=== PATIENT | male | born 1955 | race Caucasian/White ===

== ENCOUNTER 2021-09-01 22:15 | Inpatient (IN) | payer OTHER ==
[2021-09-01 23:01] LABS: Bilirubin Neg (Negative); Blood, Urine 150 (Negative); Clarity Clear (Clear); Glucose, Urine (Dipstick) Normal (Negative); Ketone, Urine 50 mg/dL (Negative); Leukocyte 100 (Negative); Nitrite Negative (Negative); Protein, Urine (Dipstick) 30 mg/dl (Neg-Trace); Urobilinogen Normal mg/dL (Less than 2); pH, Urine 6.5 (5.0-9.0)
[2021-09-01 23:10] LABS: Bacteria/HPF 2+ HPF (None Seen); RBC/HPF 0-3 HPF (0-3); Squamous Epithelial None Seen HPF (0-3); WBC/HPF 0-3 HPF (0-3)
[2021-09-01 23:11] LABS: ALT (SGPT) 43 U/L (8-55); AST (SGOT) 60 U/L (5-34); Albumin 3.8 g/dL (3.4-4.8); Alkaline Phosphatase 192 U/L (40-110); Anion Gap 18 mmol/L (10-20); BUN (Urea Nitrogen) 21 mg/dL (8.4-25.7); Bilirubin, Total 1.3 mg/dL (0.2-1.2); CK (CPK) 990 U/L (30-200); Calc. Creatinine Clearance 0 mL/min (70-130); Calcium 7.5 mg/dL (7.8-10.44); Carbon Dioxide 22 mmol/L (23-31); Globulin 2.5 g/dL (2.4-3.5); Glucose 89 mg/dL (80-115); Lipase 29 U/L (8-78); Magnesium 1.5 mg/dL (1.6-2.6); Protein, Total 6.3 g/dL (5.8-8.1)
[2021-09-01 23:40] LABS: SARS-CoV-2 NAA Rapid Test Not Detected (NotDetected)
[2021-09-01 23:53] LABS: CKMB 23.3 ng/mL (0-6.6)
[2021-09-01 23:54] LABS: Chloride 68 mmol/L (98-107); Potassium 2.1 mmol/L (3.5-5.1); Sodium 103 mmol/L (136-145)
[2021-09-02 00:44] LABS: ALT (SGPT) 36 U/L (8-55); AST (SGOT) 52 U/L (5-34); Albumin 3.5 g/dL (3.4-4.8); Alkaline Phosphatase 179 U/L (40-110); Anion Gap 20 mmol/L (10-20); BUN (Urea Nitrogen) 20 mg/dL (8.4-25.7); Bilirubin, Total 1.2 mg/dL (0.2-1.2); Calc. Creatinine Clearance 0 mL/min (70-130); Calcium 6.9 mg/dL (7.8-10.44); Carbon Dioxide 19 mmol/L (23-31); Globulin 2.4 g/dL (2.4-3.5); Glucose 78 mg/dL (80-115); Protein, Total 5.9 g/dL (5.8-8.1)
[2021-09-02 00:49] LABS: Chloride 71 mmol/L (98-107); Potassium 2.1 mmol/L (3.5-5.1); Sodium 108 mmol/L (136-145)
[2021-09-02 00:50] LABS: #Monocytes 0.7 10x3/uL (0.0-1.1); #Neutrophils 8.5 10x3/uL (1.5-8.4); %Basophils 0.2 % (0.0-2.0); %Eosinophils 0.1 % (0.0-6.0); %Lymphocytes 7.5 % (18.0-47.0); %Monocytes 6.6 % (0.0-10.0); %Neutrophils 84.6 % (40.0-75.0); Hemoglobin 12.8 g/dL (13.5-17.5); Mean Corpuscular HGB CONC 39.8 g/dL (32.0-36.0); Mean Corpuscular Hemoglobin 31.1 pg (27.0-33.0); Mean Corpuscular Volume 78.2 fl (81.2-95.1); Mean Platelet Volume 8.7 fl (7.4-10.4); Platelet Count 213 10x3/uL (150-450); RBC Distribution Width 12.2 % (11.5-14.5); Red Blood Cell (RBC) Count 4.12 10x6/uL (4.32-5.72); White Blood Cell (WBC) Count 10.1 10x3/uL (3.5-10.5)
[2021-09-02] MEDS ORDERED: Magnesium 2 GM/50 ML BAG (IN WATER) ONE (00:50)
[2021-09-02] MEDS ORDERED: NS 0.9% w/ 40 MEQ KCL 1,000 ML IV ONE (00:59)
[2021-09-02] MEDS ORDERED: Potassium Chloride 20 MEQ TAB PO SCH ×3 (02:15→18:00)
[2021-09-02] MEDS: Potassium Chloride 20 MEQ in Premix Bag 1 BAG IVPB SCH ×4 (02:58→20:24)
[2021-09-02] MEDS ORDERED: CALCIUM GLUC 1GM/NS 50ML 1 GM in Premix Bag 1 BAG IVPB SCH (04:00)
[2021-09-02 06:41] LABS: PTT 28.3 sec (22.0-33.0); Prothrombin Time 11.1 sec (9.5-12.1)
[2021-09-02 06:51] LABS: Anion Gap 20 mmol/L (10-20); BUN (Urea Nitrogen) 19 mg/dL (8.4-25.7); Calc. Creatinine Clearance 88 mL/min (70-130); Calcium 7.6 mg/dL (7.8-10.44); Carbon Dioxide 20 mmol/L (23-31); Glucose 78 mg/dL (80-115); Magnesium 1.8 mg/dL (1.6-2.6)
[2021-09-02 06:54] LABS: Chloride 73 mmol/L (98-107); Potassium 2.5 mmol/L (3.5-5.1); Sodium 110 mmol/L (136-145)
[2021-09-02 06:55] LABS: Troponin I 0.039 ng/mL (< 0.028)
[2021-09-02] MEDS ORDERED: Dextrose 5% in Water 1,000 ML IV SCH (07:45)
[2021-09-02] MEDS: Enoxaparin Sodium 40 MG/0.4 ML SYRINGE SC SCH (08:09)
[2021-09-02] MEDS: Magnesium Oxide 400 MG TAB PO SCH (08:10)
[2021-09-02 12:01] LABS: Anion Gap 16 mmol/L (10-20); BUN (Urea Nitrogen) 19 mg/dL (8.4-25.7); Calc. Creatinine Clearance 88 mL/min (70-130); Calcium 7.9 mg/dL (7.8-10.44); Carbon Dioxide 19 mmol/L (23-31); Chloride 76 mmol/L (98-107); Glucose 92 mg/dL (80-115)
[2021-09-02 12:16] LABS: Potassium 2.6 mmol/L (3.5-5.1); Sodium 108 mmol/L (136-145)
[2021-09-02 17:30] LABS: Anion Gap 12 mmol/L (10-20); BUN (Urea Nitrogen) 20 mg/dL (8.4-25.7); Calc. Creatinine Clearance 81 mL/min (70-130); Calcium 7.7 mg/dL (7.8-10.44); Carbon Dioxide 23 mmol/L (23-31); Chloride 75 mmol/L (98-107); Glucose 106 mg/dL (80-115)
[2021-09-02 17:41] LABS: Potassium 2.5 mmol/L (3.5-5.1); Sodium 108 mmol/L (136-145)
[2021-09-02 19:33] LABS: Anion Gap 15 mmol/L (10-20); BUN (Urea Nitrogen) 19 mg/dL (8.4-25.7); Calc. Creatinine Clearance 81 mL/min (70-130); Calcium 7.4 mg/dL (7.8-10.44); Carbon Dioxide 22 mmol/L (23-31); Chloride 76 mmol/L (98-107); Glucose 110 mg/dL (80-115)
[2021-09-02 19:36] LABS: Potassium 2.6 mmol/L (3.5-5.1); Sodium 110 mmol/L (136-145)
[2021-09-02] MEDS: Potassium Chloride 20 MEQ TAB PO SCH (20:25)
[2021-09-02 23:38] LABS: Anion Gap 13 mmol/L (10-20); BUN (Urea Nitrogen) 20 mg/dL (8.4-25.7); Calc. Creatinine Clearance 78 mL/min (70-130); Calcium 7.9 mg/dL (7.8-10.44); Carbon Dioxide 22 mmol/L (23-31); Chloride 79 mmol/L (98-107); Glucose 109 mg/dL (80-115); Potassium 3.1 mmol/L (3.5-5.1)
[2021-09-02 23:39] LABS: Sodium 111 mmol/L (136-145)
[2021-09-03] MEDS: Potassium Chloride 20 MEQ TAB PO SCH (01:29)
[2021-09-03 04:08] LABS: Anion Gap 14 mmol/L (10-20); BUN (Urea Nitrogen) 18 mg/dL (8.4-25.7); CK (CPK) 786 U/L (30-200); Calc. Creatinine Clearance 83 mL/min (70-130); Calcium 7.8 mg/dL (7.8-10.44); Carbon Dioxide 21 mmol/L (23-31); Chloride 82 mmol/L (98-107); Glucose 99 mg/dL (80-115); Magnesium 1.8 mg/dL (1.6-2.6); Potassium 3.3 mmol/L (3.5-5.1)
[2021-09-03 04:12] LABS: Sodium 114 mmol/L (136-145)
[2021-09-03 04:25] LABS: #Monocytes 0.7 10x3/uL (0.0-1.1); #Neutrophils 5.3 10x3/uL (1.5-8.4); %Basophils 0.1 % (0.0-2.0); %Eosinophils 0.6 % (0.0-6.0); %Lymphocytes 12.7 % (18.0-47.0); %Monocytes 10.3 % (0.0-10.0); %Neutrophils 75.7 % (40.0-75.0); Hemoglobin 12.6 g/dL (13.5-17.5); Mean Corpuscular HGB CONC 38.7 g/dL (32.0-36.0); Mean Corpuscular Hemoglobin 31.2 pg (27.0-33.0); Mean Corpuscular Volume 80.7 fl (81.2-95.1); Mean Platelet Volume 8.9 fl (7.4-10.4); Platelet Count 173 10x3/uL (150-450); RBC Distribution Width 12.2 % (11.5-14.5); Red Blood Cell (RBC) Count 4.04 10x6/uL (4.32-5.72)
[2021-09-03] MEDS ORDERED: Potassium Chloride 20 MEQ TAB PO SCH ×3 (07:30→20:15)
[2021-09-03] MEDS: Magnesium Oxide 400 MG TAB PO SCH (08:09)
[2021-09-03] MEDS: Enoxaparin Sodium 40 MG/0.4 ML SYRINGE SC SCH (08:09)
[2021-09-03 11:52] LABS: Anion Gap 14 mmol/L (10-20); BUN (Urea Nitrogen) 17 mg/dL (8.4-25.7); Calc. Creatinine Clearance 84 mL/min (70-130); Calcium 7.9 mg/dL (7.8-10.44); Carbon Dioxide 20 mmol/L (23-31); Chloride 84 mmol/L (98-107); Glucose 101 mg/dL (80-115); Potassium 3.4 mmol/L (3.5-5.1)
[2021-09-03 12:03] LABS: Sodium 115 mmol/L (136-145)
[2021-09-03] MEDS: cefTRIAXone\\ROCEPHIN 1 GM in Sodium Chloride 0.9% 100 ML IVPB SCH (16:45)
[2021-09-03 19:42] LABS: Anion Gap 11 mmol/L (10-20); BUN (Urea Nitrogen) 18 mg/dL (8.4-25.7); Calc. Creatinine Clearance 78 mL/min (70-130); Calcium 7.8 mg/dL (7.8-10.44); Carbon Dioxide 23 mmol/L (23-31); Chloride 86 mmol/L (98-107); Glucose 133 mg/dL (80-115); Potassium 3.2 mmol/L (3.5-5.1)
[2021-09-03 19:46] LABS: Sodium 117 mmol/L (136-145)
[2021-09-03] MEDS ORDERED: Baclofen 10 MG TAB PO SCH (20:30)
[2021-09-03] MEDS: Acetaminophen 325 MG TAB PO PRN (23:11)
[2021-09-04 05:00] LABS: Anion Gap 14 mmol/L (10-20); BUN (Urea Nitrogen) 17 mg/dL (8.4-25.7); Calc. Creatinine Clearance 81 mL/min (70-130); Calcium 7.9 mg/dL (7.8-10.44); Carbon Dioxide 20 mmol/L (23-31); Chloride 91 mmol/L (98-107); Glucose 102 mg/dL (80-115); Potassium 3.9 mmol/L (3.5-5.1); Sodium 121 mmol/L (136-145)
[2021-09-04] MEDS: Enoxaparin Sodium 40 MG/0.4 ML SYRINGE SC SCH (09:20)
[2021-09-04] MEDS: Magnesium Oxide 400 MG TAB PO SCH (09:20)
[2021-09-04 11:23] VITALS: BMI 33.7
[2021-09-04] MEDS: cefTRIAXone\\ROCEPHIN 1 GM in Sodium Chloride 0.9% 100 ML IVPB SCH (16:09)
[2021-09-04] MEDS: Gabapentin 300 MG CAP PO SCH ×2 (16:09→20:38)
[2021-09-04] MEDS ORDERED: Baclofen 10 MG TAB PO SCH (21:00)
[2021-09-05 04:26] LABS: #Eosinphils 0.1 10x3/uL (0.0-0.5); #Monocytes 0.7 10x3/uL (0.0-1.1); #Neutrophils 4.6 10x3/uL (1.5-8.4); %Basophils 0.6 % (0.0-2.0); %Eosinophils 1.5 % (0.0-6.0); %Lymphocytes 18.7 % (18.0-47.0); %Monocytes 9.9 % (0.0-10.0); %Neutrophils 68.1 % (40.0-75.0); Hemoglobin 12.5 g/dL (13.5-17.5); Mean Corpuscular HGB CONC 37.3 g/dL (32.0-36.0); Mean Corpuscular Hemoglobin 31.1 pg (27.0-33.0); Mean Corpuscular Volume 83.3 fl (81.2-95.1); Platelet Count 176 10x3/uL (150-450); RBC Distribution Width 12.8 % (11.5-14.5); Red Blood Cell (RBC) Count 4.02 10x6/uL (4.32-5.72); White Blood Cell (WBC) Count 6.8 10x3/uL (3.5-10.5)
[2021-09-05 04:44] LABS: Anion Gap 14 mmol/L (10-20); BUN (Urea Nitrogen) 18 mg/dL (8.4-25.7); Calc. Creatinine Clearance 83 mL/min (70-130); Calcium 8.3 mg/dL (7.8-10.44); Carbon Dioxide 21 mmol/L (23-31); Chloride 95 mmol/L (98-107); Glucose 95 mg/dL (80-115); Potassium 3.4 mmol/L (3.5-5.1); Sodium 127 mmol/L (136-145)
[2021-09-05] MEDS: Gabapentin 300 MG CAP PO SCH ×3 (09:24→21:06)
[2021-09-05] MEDS: Enoxaparin Sodium 40 MG/0.4 ML SYRINGE SC SCH (09:25)
[2021-09-05] MEDS: Acetaminophen 325 MG TAB PO PRN (09:25)
[2021-09-05] MEDS: Magnesium Oxide 400 MG TAB PO SCH (09:25)
[2021-09-05] MEDS ORDERED: Nystatin Powder 15 GM BOT TOP PRN (12:01)
[2021-09-05] MEDS: Baclofen 10 MG TAB PO SCH ×2 (15:43→21:05)
[2021-09-05] MEDS: cefTRIAXone\\ROCEPHIN 1 GM in Sodium Chloride 0.9% 100 ML IVPB SCH (15:43)
[2021-09-05] MEDS ORDERED: Potassium Chloride 20 MEQ TAB PO SCH (16:00)
[2021-09-05] MEDS: Mometasone 100 MCG/PUFF (1 INHALER) INH SCH (19:40)
[2021-09-05] MEDS ORDERED: Atorvastatin Calcium 20 MG TAB PO SCH (21:00)
[2021-09-05] MEDS ORDERED: carBAMazepine 200 MG TAB PO SCH (21:00)
[2021-09-06 05:17] LABS: Anion Gap 16 mmol/L (10-20); BUN (Urea Nitrogen) 23 mg/dL (8.4-25.7); Calc. Creatinine Clearance 68 mL/min (70-130); Calcium 8.2 mg/dL (7.8-10.44); Carbon Dioxide 20 mmol/L (23-31); Chloride 100 mmol/L (98-107); Glucose 100 mg/dL (80-115); Magnesium 1.6 mg/dL (1.6-2.6); Potassium 3.9 mmol/L (3.5-5.1); Sodium 132 mmol/L (136-145)
[2021-09-06] MEDS: Mometasone 100 MCG/PUFF (1 INHALER) INH SCH (06:43)
[2021-09-06] MEDS: Magnesium Oxide 400 MG TAB PO SCH (09:59)
[2021-09-06] MEDS: Gabapentin 300 MG CAP PO SCH ×2 (09:59→18:38)
[2021-09-06] MEDS: Baclofen 10 MG TAB PO SCH ×2 (09:59→18:39)
[2021-09-06] MEDS: Enoxaparin Sodium 40 MG/0.4 ML SYRINGE SC SCH (09:59)
[2021-09-06] MEDS ORDERED: Magnesium 2 GM/50 ML(in water) 2 GM in Premix Bag 1 BAG IVPB SCH (17:00)
[2021-09-06 18:50] VITALS: BP 118/67; TEMP 98.7
== END 2021-09-06 18:57 | DRG 641 ==
LOC: CSHERS 22:15 → CSHIMCU 09-02 02:41 → CSHTELE 09-04 10:56
PROVIDERS: ADMIT Family Medicine; ATTEND Family Medicine
DX: E87.1 Hypo-osmolality and hyponatremia (principal); N39.0 Urinary tract infection, site not specified; T83.511A Infection and inflammatory reaction due to indwelling urethral catheter, initial encounter; G82.20 Paraplegia, unspecified; N17.9 Acute kidney failure, unspecified; I95.0 Idiopathic hypotension; F12.90 Cannabis use, unspecified, uncomplicated; E87.6 Hypokalemia; E83.42 Hypomagnesemia; N18.31 Chronic kidney disease, stage 3a; I25.10 Atherosclerotic heart disease of native coronary artery without angina pectoris; E86.1 Hypovolemia; E88.09 Other disorders of plasma-protein metabolism, not elsewhere classified; E87.8 Other disorders of electrolyte and fluid balance, not elsewhere classified; E87.2 Acidosis; D63.1 Anemia in chronic kidney disease; N40.1 Benign prostatic hyperplasia with lower urinary tract symptoms; R33.8 Other retention of urine; Z20.822 Contact with and (suspected) exposure to COVID-19; Z72.89 Other problems related to lifestyle; Z79.899 Other long term (current) drug therapy; Z88.2 Allergy status to sulfonamides; I25.2 Old myocardial infarction; Z79.2 Long term (current) use of antibiotics; Z98.1 Arthrodesis status; Z82.5 Family history of asthma and other chronic lower respiratory diseases
CPT/HCPCS: 36415; 71045; 80048; 80053; 81003; 81015; 82550; 82553; 83605; 83690; 83735; 83930; 83935; 84300; 84439; 84443; 84484; 85025; 85610; 85730; 87040; 93005; 94660; 94760; 96374; 96375; 97139; J0610; J0696; J1650; J2597; J3475; J3480; J3490; J7070